=== PATIENT | male | born 1950 | race African-American/Black ===

== ENCOUNTER 2023-05-01 01:59 | Emergency (ER) | payer OTHER ==
[2023-05-01 02:10] VITALS: BMI 15.3
[2023-05-01 02:54] LABS: BASO % 0.1 % (0-2.0); EOS % 1.9 % (0-4.5); HEMOGLOBIN 11.9 GM/dL (11.7-16.9); LYMPH % 15.6 % (8-40); MCH 28.6 pg (25.7-33.7); MCHC 33.2 g/dl (32.0-35.9); MEAN CELL VOLUME 86.1 fl (80-96); MEAN PLT VOLUME 9.2 fl (7.5-11.1); MONO % 10.2 % (3.8-10.2); NEUT % 72.2 % (42.8-82.8); PLATELET COUNT 195 10^3/uL (134-434); RBC 4.17 M/mm3 (4.00-5.60); RDW 14.5 % (11.9-15.9)
[2023-05-01 03:13] LABS: POTASSIUM 3.8 mmol/L (3.5-5.1)
[2023-05-01 03:15] LABS: ALBUMIN 2.8 g/dl (3.4-5.0); CALCIUM 8.4 mg/dL (8.5-10.1)
[2023-05-01 03:16] LABS: BLOOD UREA NITROGEN 13.7 mg/dL (7-18)
[2023-05-01 03:18] LABS: CREATININE 0.8 mg/dL (0.55-1.3)
[2023-05-01 03:20] LABS: BILIRUBIN,TOTAL 0.6 mg/dL (0.2-1); TOT PROT 6.3 g/dl (6.4-8.2)
[2023-05-01] MEDS ORDERED: SODIUM CHLORIDE 0.9% 500 ML INFUS.BAG IV ONE (03:38)
[2023-05-01 04:50] LABS: EPI CELLS 6 /uL (0-25.1); HYALINE CASTS 0 /uL (0-3.1); URINE APPEARANCE CLOUDY; URINE BACTERIA 105 /uL (0-1359); URINE BILIRUBIN NEGATIVE (NEGATIVE); URINE COLOR YELLOW; URINE GLUCOSE (UA) NEGATIVE (NEGATIVE); URINE KETONE TRACE (NEGATIVE); URINE LEUK ESTERASE 3+ (NEGATIVE); URINE NITRITE NEGATIVE (NEGATIVE); URINE PROTEIN 2+ (NEGATIVE); URINE RBC 268 /uL (0-23.9); URINE WBC 3178 /uL (0-25.8)
[2023-05-01] MEDS ORDERED: CEFTRIAXONE 1,000 MG in DEXTROSE 5%-WATER - 50 ML IVPB ONE (04:56)
[2023-05-01] MEDS ORDERED: CEFTRIAXONE 1 GM/50 ML BAG ONE (05:01)
[2023-05-01] MEDS ORDERED: amLODIPine BESYLATE 5 MG TABLET (FP) PO ONE (06:28)
[2023-05-01] MEDS ORDERED: amLODIPine BESYLATE 5 MG TABLET (FP) ONE (06:32)
[2023-05-01 10:38] VITALS: BP 155/83; PULSE 61; RESP 20; TEMP 97.6
== END 2023-05-01 10:51 ==
LOC: JER 01:59
DX: N39.0 Urinary tract infection, site not specified (principal); Z20.822 Contact with and (suspected) exposure to COVID-19
CPT/HCPCS: 0241U-QW; 36415; 71045-TC-FY; 80053; 81003; 83735; 84484; 85025; 87086; 93005; 93010; 99285-25

== ENCOUNTER 2023-06-06 11:45 | Inpatient (IN) | payer OTHER ==
[2023-06-06] MEDS ORDERED: ONDANSETRON 4 MG/2 ML VIAL IVPUSH ONE (14:01)
[2023-06-06] MEDS ORDERED: ONDANSETRON 4 MG/2 ML VIAL ONE (14:04)
[2023-06-06 14:21] LABS: HEMATOCRIT 42.1 % (35.4-49); HEMOGLOBIN 13.9 GM/dL (11.7-16.9); MCH 28.4 pg (25.7-33.7); MEAN PLT VOLUME 10.6 fl (7.5-11.1); PLATELET COUNT 216 10^3/uL (134-434); RDW 14.9 % (11.9-15.9); WHITE BLOOD COUNT 18.5 K/mm3 (4.0-10.0)
[2023-06-06 14:37] LABS: EPI CELLS 10 /uL (0-25.1); HYALINE CASTS 9 /uL (0-3.1); URINE APPEARANCE CLOUDY; URINE BACTERIA 193 /uL (0-1359); URINE BILIRUBIN 1+ (NEGATIVE); URINE COLOR DK YELLOW; URINE GLUCOSE (UA) NEGATIVE (NEGATIVE); URINE KETONE TRACE (NEGATIVE); URINE LEUK ESTERASE 1+ (NEGATIVE); URINE NITRITE NEGATIVE (NEGATIVE); URINE PROTEIN 2+ (NEGATIVE); URINE RBC 75 /uL (0-23.9); URINE WBC 547 /uL (0-25.8)
[2023-06-06 14:51] LABS: POTASSIUM 5.3 mmol/L (3.5-5.1)
[2023-06-06 14:53] LABS: BLOOD UREA NITROGEN 42.9 mg/dL (7-18); CALCIUM 9.4 mg/dL (8.5-10.1)
[2023-06-06] MEDS ORDERED: PIPERACILLIN/TAZOB 3.375 GM 3.375 GM in DEXTROSE 5%-WATER - 50 ML IVPB ONE (14:53)
[2023-06-06] MEDS ORDERED: VANCOMYCIN 1 GM PREMIX - 1 GM/200 ML BAG IVPB ONE (14:54)
[2023-06-06] MEDS ORDERED: PANTOPRAZOLE SODIUM 40 MG VIAL IVPUSH ONE (14:54)
[2023-06-06 14:56] LABS: CREATININE 1.3 mg/dL (0.55-1.3)
[2023-06-06 14:58] LABS: TOT PROT 8.1 g/dl (6.4-8.2)
[2023-06-06] MEDS ORDERED: PANTOPRAZOLE SODIUM 40 MG VIAL ONE (14:58)
[2023-06-06] MEDS ORDERED: VANCOMYCIN 1 GRAM (PRE-DOCKED) 1,000 MG/250 ML BAG IVPB ONE (14:58)
[2023-06-06] MEDS ORDERED: PIPERACILLIN/TAZOB 3.375 GM 3.375 GM/50 ML BAG IVPB ONE ×2 (14:59→21:33)
[2023-06-06 15:02] LABS: ANISOCYTOSIS 0; MACROCYTOSIS 0
[2023-06-06 15:03] LABS: LACTIC ACID 3.5 mmol/L (0.4-2.0)
[2023-06-06 15:52] LABS: YEAST NONE SEEN (NEGATIVE)
[2023-06-06 15:53] LABS: ACTIVATED PTT 28.7 SECONDS (25.2-36.5); INR 1.11 (0.83-1.09); PROTHROMBIN TIME (PATIENT) 12.9 SEC (9.7-13.0)
[2023-06-06] MEDS ORDERED: LACTATED RINGERS SOLUTION 1000 ML INFUS.BAG IV ONE (16:30)
[2023-06-06] MEDS ORDERED: LIDOCAINE HCL 2% JELLY 11 ML TP ONE (18:23)
[2023-06-06] MEDS ORDERED: DEXTROSE 5%-0.45% SALINE 1,000 ML IV SCH (21:15)
[2023-06-06] MEDS ORDERED: ACETAMINOPHEN 1000 MG/100 ML BAG IVPB PRN (21:23)
[2023-06-06] MEDS ORDERED: PIPERACILLIN/TAZOB 3.375 GM 3.375 GM in DEXTROSE 5%-WATER - 50 ML IVPB SCH (21:30)
[2023-06-06] MEDS: PIPERACILLIN/TAZOB 3.375 GM 3.375 GM in DEXTROSE 5%-WATER - 50 ML IVPB SCH (21:56)
[2023-06-07 00:02] LABS: POTASSIUM 4.2 mmol/L (3.5-5.1)
[2023-06-07 00:04] LABS: BLOOD UREA NITROGEN 33.5 mg/dL (7-18); CALCIUM 8.8 mg/dL (8.5-10.1); MAGNESIUM 2.9 mg/dL (1.8-2.4)
[2023-06-07 00:08] LABS: CREATININE 1.2 mg/dL (0.55-1.3)
[2023-06-07] MEDS ORDERED: VANCOMYCIN 1,000 MG in DEXTROSE 5%-WATER - 250 ML IVPB SCH (04:00)
[2023-06-07] MEDS: PIPERACILLIN/TAZOB 3.375 GM 3.375 GM in DEXTROSE 5%-WATER - 50 ML IVPB SCH ×3 (04:09→14:07)
[2023-06-07] MEDS: VANCOMYCIN/WATER FOR INJ (PEG) 1,000 MG/200 ML BAG IVPB SCH ×2 (04:20→16:55)
[2023-06-07] MEDS: PANTOPRAZOLE SODIUM 40 MG VIAL IVPUSH SCH (09:56)
[2023-06-07 10:36] LABS: HEMATOCRIT 38.7 % (35.4-49); HEMOGLOBIN 12.6 GM/dL (11.7-16.9); MCH 28.2 pg (25.7-33.7); MCHC 32.5 g/dl (32.0-35.9); MEAN CELL VOLUME 86.7 fl (80-96); MEAN PLT VOLUME 10.8 fl (7.5-11.1); PLATELET COUNT 192 10^3/uL (134-434); RBC 4.47 M/mm3 (4.00-5.60); RDW 15.1 % (11.9-15.9); WHITE BLOOD COUNT 14.4 K/mm3 (4.0-10.0)
[2023-06-07 10:54] LABS: POTASSIUM 3.9 mmol/L (3.5-5.1)
[2023-06-07 10:57] LABS: CALCIUM 8.9 mg/dL (8.5-10.1)
[2023-06-07 10:58] LABS: ALBUMIN 2.6 g/dl (3.4-5.0); BLOOD UREA NITROGEN 26.4 mg/dL (7-18)
[2023-06-07 11:01] LABS: CREATININE 1.2 mg/dL (0.55-1.3)
[2023-06-07 11:02] LABS: BILIRUBIN,TOTAL 0.8 mg/dL (0.2-1); TOT PROT 6.6 g/dl (6.4-8.2)
[2023-06-07] MEDS: SILVER SULFADIAZINE 1% TOP CREAM 50 GM JAR TP SCH (11:06)
[2023-06-07 11:08] LABS: ANISOCYTOSIS 0; HELMET CELLS 0; HOWELL-JOLLY BODIES 0; MACROCYTOSIS 0; OVALOCYTE 0; ROULEAU 0; SICKELED CELLS 0; TARGET CELLS 0; TEAR DROP CELLS 0; TOXIC GRANULATION 0
[2023-06-07] MEDS: SODIUM CHLORIDE 1,000 ML IV SCH (14:07)
[2023-06-08] MEDS: ZINC SULFATE 220 MG CAPSULE (FP) PO SCH (09:19)
[2023-06-08] MEDS: ASCORBIC ACID 500 MG TABLET (FP) PO SCH ×2 (09:20→22:01)
[2023-06-08] MEDS: MULTIVITAMINS (DAILY MVI) TABLET (FP) PO SCH (09:20)
[2023-06-08] MEDS: PANTOPRAZOLE SODIUM 40 MG VIAL IVPUSH SCH (10:06)
[2023-06-08] MEDS: SILVER SULFADIAZINE 1% TOP CREAM 50 GM JAR TP SCH (10:45)
[2023-06-08] MEDS ORDERED: METOCLOPRAMIDE HCL INJECTION 10 MG/2 ML VIAL IVPUSH PRN (10:53)
[2023-06-08] MEDS: SODIUM CHLORIDE 1,000 ML IV SCH ×2 (17:03→22:09)
[2023-06-08] MEDS: PIPERACILLIN/TAZOB 3.375 GM 3.375 GM in DEXTROSE 5%-WATER - 50 ML IVPB SCH ×2 (17:07→22:02)
[2023-06-09] MEDS: PIPERACILLIN/TAZOB 3.375 GM 3.375 GM in DEXTROSE 5%-WATER - 50 ML IVPB SCH ×4 (02:01→21:53)
[2023-06-09] MEDS: PANTOPRAZOLE SODIUM 40 MG VIAL IVPUSH SCH (09:58)
[2023-06-09] MEDS: SILVER SULFADIAZINE 1% TOP CREAM 50 GM JAR TP SCH (10:00)
[2023-06-09] MEDS: MULTIVITAMINS (DAILY MVI) TABLET (FP) PO SCH (10:05)
[2023-06-09] MEDS: ASCORBIC ACID 500 MG TABLET (FP) PO SCH ×2 (10:05→21:53)
[2023-06-09] MEDS: ZINC SULFATE 220 MG CAPSULE (FP) PO SCH (10:05)
[2023-06-09] MEDS: SODIUM CHLORIDE 1,000 ML IV SCH (12:29)
[2023-06-10] MEDS: PIPERACILLIN/TAZOB 3.375 GM 3.375 GM in DEXTROSE 5%-WATER - 50 ML IVPB SCH ×4 (03:49→21:52)
[2023-06-10 07:07] LABS: BASO % 0.2 % (0-2.0); EOS % 1.2 % (0-4.5); HEMATOCRIT 33.5 % (35.4-49); HEMOGLOBIN 10.8 GM/dL (11.7-16.9); LYMPH % 13.1 % (8-40); MCH 28.1 pg (25.7-33.7); MCHC 32.4 g/dl (32.0-35.9); MEAN CELL VOLUME 86.7 fl (80-96); MEAN PLT VOLUME 9.3 fl (7.5-11.1); MONO % 15.6 % (3.8-10.2); NEUT % 69.9 % (42.8-82.8); PLATELET COUNT 199 10^3/uL (134-434); RBC 3.86 M/mm3 (4.00-5.60); RDW 14.7 % (11.9-15.9); WHITE BLOOD COUNT 7.6 K/mm3 (4.0-10.0)
[2023-06-10 07:35] LABS: BLOOD UREA NITROGEN 17.3 mg/dL (7-18); CALCIUM 8.4 mg/dL (8.5-10.1)
[2023-06-10 07:36] LABS: ALBUMIN 2.2 g/dl (3.4-5.0)
[2023-06-10 07:39] LABS: BILIRUBIN,TOTAL 1.1 mg/dL (0.2-1); CREATININE 0.7 mg/dL (0.55-1.3); TOT PROT 5.9 g/dl (6.4-8.2)
[2023-06-10] MEDS ORDERED: SODIUM CHLORIDE 0.45%/POT 20 MEQ/1,000 ML INFUS.BAG IV SCH (09:15)
[2023-06-10] MEDS: PANTOPRAZOLE SODIUM 40 MG VIAL IVPUSH SCH (10:31)
[2023-06-10] MEDS: MULTIVITAMINS (DAILY MVI) TABLET (FP) PO SCH (11:34)
[2023-06-10] MEDS: SILVER SULFADIAZINE 1% TOP CREAM 50 GM JAR TP SCH (11:34)
[2023-06-10] MEDS: ZINC SULFATE 220 MG CAPSULE (FP) PO SCH (11:34)
[2023-06-10] MEDS: ASCORBIC ACID 500 MG TABLET (FP) PO SCH ×2 (11:35→21:49)
[2023-06-10 11:54] LABS: BILIRUBIN,DIRECT 0.2 mg/dL (0.0-0.2)
[2023-06-10] MEDS: KCL 10 MEQ IVPB 10 MEQ/100 ML INFUS.BAG IVPB SCH ×3 (15:18→18:47)
[2023-06-10 16:11] VITALS: BMI 14.2
[2023-06-10] MEDS: SODIUM CHLORIDE 0.45%/POT 20 MEQ/1,000 ML INFUS.BAG IV SCH (17:09)
[2023-06-11] MEDS: PIPERACILLIN/TAZOB 3.375 GM 3.375 GM in DEXTROSE 5%-WATER - 50 ML IVPB SCH ×4 (03:00→21:13)
[2023-06-11] MEDS: SODIUM CHLORIDE 0.45%/POT 20 MEQ/1,000 ML INFUS.BAG IV SCH ×2 (04:47→18:00)
[2023-06-11 08:17] LABS: BASO % 0.2 % (0-2.0); EOS % 1.9 % (0-4.5); HEMOGLOBIN 11.1 GM/dL (11.7-16.9); LYMPH % 7.9 % (8-40); MCHC 32.6 g/dl (32.0-35.9); MONO % 12.3 % (3.8-10.2); NEUT % 77.7 % (42.8-82.8); PLATELET COUNT 198 10^3/uL (134-434); RBC 3.96 M/mm3 (4.00-5.60); RDW 14.6 % (11.9-15.9); WHITE BLOOD COUNT 9.3 K/mm3 (4.0-10.0)
[2023-06-11 08:45] LABS: POTASSIUM 3.4 mmol/L (3.5-5.1)
[2023-06-11 08:57] LABS: ALBUMIN 2.1 g/dl (3.4-5.0); BLOOD UREA NITROGEN 16.2 mg/dL (7-18)
[2023-06-11 09:01] LABS: CREATININE 0.6 mg/dL (0.55-1.3); TOT PROT 5.8 g/dl (6.4-8.2)
[2023-06-11] MEDS: MULTIVITAMINS (DAILY MVI) TABLET (FP) PO SCH ×2 (09:21→09:24)
[2023-06-11] MEDS: ZINC SULFATE 220 MG CAPSULE (FP) PO SCH ×2 (09:21→09:24)
[2023-06-11] MEDS: PANTOPRAZOLE SODIUM 40 MG VIAL IVPUSH SCH (09:21)
[2023-06-11] MEDS: ASCORBIC ACID 500 MG TABLET (FP) PO SCH ×3 (09:21→21:02)
[2023-06-11] MEDS: SILVER SULFADIAZINE 1% TOP CREAM 50 GM JAR TP SCH (09:22)
[2023-06-11] MEDS: KCL 10 MEQ IVPB 10 MEQ/100 ML INFUS.BAG IVPB SCH ×3 (11:45→14:48)
[2023-06-12] MEDS: PIPERACILLIN/TAZOB 3.375 GM 3.375 GM in DEXTROSE 5%-WATER - 50 ML IVPB SCH ×4 (03:39→22:00)
[2023-06-12] MEDS: ZINC SULFATE 220 MG CAPSULE (FP) PO SCH (10:21)
[2023-06-12] MEDS: ASCORBIC ACID 500 MG TABLET (FP) PO SCH ×2 (10:21→22:01)
[2023-06-12] MEDS: MULTIVITAMINS (DAILY MVI) TABLET (FP) PO SCH (10:21)
[2023-06-12] MEDS: PANTOPRAZOLE SODIUM 40 MG VIAL IVPUSH SCH (10:22)
[2023-06-12] MEDS: AMINO ACIDS 4.25%/D5W 1,000 ML IV SCH (10:22)
[2023-06-12] MEDS: SILVER SULFADIAZINE 1% TOP CREAM 50 GM JAR TP SCH (10:34)
[2023-06-12] MEDS: SODIUM CHLORIDE 0.45%/POT 20 MEQ/1,000 ML INFUS.BAG IV SCH (11:44)
[2023-06-13] MEDS: PIPERACILLIN/TAZOB 3.375 GM 3.375 GM in DEXTROSE 5%-WATER - 50 ML IVPB SCH ×4 (03:29→21:55)
[2023-06-13] MEDS: ZINC SULFATE 220 MG CAPSULE (FP) PO SCH (09:50)
[2023-06-13] MEDS: ASCORBIC ACID 500 MG TABLET (FP) PO SCH ×2 (09:51→22:38)
[2023-06-13] MEDS: MULTIVITAMINS (DAILY MVI) TABLET (FP) PO SCH (09:51)
[2023-06-13] MEDS: PANTOPRAZOLE SODIUM 40 MG VIAL IVPUSH SCH (10:02)
[2023-06-13] MEDS: SILVER SULFADIAZINE 1% TOP CREAM 50 GM JAR TP SCH (10:03)
[2023-06-13] MEDS: AMINO ACIDS 4.25%/D5W 1,000 ML IV SCH (10:03)
[2023-06-13] MEDS ORDERED: GLUCAGON 1 MG KIT ONE (13:02)
[2023-06-13] MEDS ORDERED: GLUCAGON 1 MG KIT IVPUSH ONE (13:10)
[2023-06-13 16:07] LABS: POTASSIUM 3.3 mmol/L (3.5-5.1)
[2023-06-13 16:08] LABS: CALCIUM 8.3 mg/dL (8.5-10.1)
[2023-06-13 16:09] LABS: ALBUMIN 2.2 g/dl (3.4-5.0); BLOOD UREA NITROGEN 19.5 mg/dL (7-18)
[2023-06-13 16:12] LABS: CREATININE 0.7 mg/dL (0.55-1.3)
[2023-06-13 16:13] LABS: BILIRUBIN,TOTAL 0.6 mg/dL (0.2-1)
[2023-06-13 16:14] LABS: TOT PROT 6.2 g/dl (6.4-8.2)
[2023-06-13] MEDS: KCL 10 MEQ IVPB 10 MEQ/100 ML INFUS.BAG IVPB SCH ×3 (19:37→22:26)
[2023-06-13] MEDS ORDERED: KCL 10 MEQ IVPB 10 MEQ/100 ML INFUS.BAG IVPB SCH (22:15)
[2023-06-14] MEDS: POTASSIUM CHLORIDE 10 MEQ in AMINO ACIDS 4.25%/D5W 1,000 ML IV SCH ×2 (01:30→19:05)
[2023-06-14] MEDS: PIPERACILLIN/TAZOB 3.375 GM 3.375 GM in DEXTROSE 5%-WATER - 50 ML IVPB SCH ×4 (03:22→21:11)
[2023-06-14 08:42] LABS: POTASSIUM 4.2 mmol/L (3.5-5.1)
[2023-06-14 08:46] LABS: BLOOD UREA NITROGEN 21.4 mg/dL (7-18); CALCIUM 8.5 mg/dL (8.5-10.1); MAGNESIUM 1.7 mg/dL (1.8-2.4)
[2023-06-14 08:47] LABS: HEMATOCRIT 33.6 % (35.4-49); HEMOGLOBIN 11.2 GM/dL (11.7-16.9); MCH 28.5 pg (25.7-33.7); MCHC 33.2 g/dl (32.0-35.9); MEAN PLT VOLUME 8.6 fl (7.5-11.1); PLATELET COUNT 205 10^3/uL (134-434); RBC 3.91 M/mm3 (4.00-5.60); RDW 14.5 % (11.9-15.9); WHITE BLOOD COUNT 6.1 K/mm3 (4.0-10.0)
[2023-06-14 08:48] LABS: ALBUMIN 2.2 g/dl (3.4-5.0)
[2023-06-14 08:49] LABS: CREATININE 0.7 mg/dL (0.55-1.3)
[2023-06-14 08:51] LABS: BILIRUBIN,TOTAL 0.8 mg/dL (0.2-1); TOT PROT 6.2 g/dl (6.4-8.2)
[2023-06-14] MEDS: PANTOPRAZOLE SODIUM 40 MG VIAL IVPUSH SCH (09:30)
[2023-06-14] MEDS: MULTIVITAMINS (DAILY MVI) TABLET (FP) PO SCH (12:13)
[2023-06-14] MEDS: SILVER SULFADIAZINE 1% TOP CREAM 50 GM JAR TP SCH (12:13)
[2023-06-14] MEDS: ZINC SULFATE 220 MG CAPSULE (FP) PO SCH (12:13)
[2023-06-14] MEDS: ASCORBIC ACID 500 MG TABLET (FP) PO SCH ×2 (12:14→21:11)
[2023-06-14 22:21] VITALS: RESP 18
[2023-06-15] MEDS: PIPERACILLIN/TAZOB 3.375 GM 3.375 GM in DEXTROSE 5%-WATER - 50 ML IVPB SCH ×2 (02:46→08:17)
[2023-06-15 09:45] VITALS: BP 110/78; PULSE 80; TEMP 97.8
[2023-06-15] MEDS: ASCORBIC ACID 500 MG TABLET (FP) PO SCH (10:06)
[2023-06-15] MEDS: MULTIVITAMINS (DAILY MVI) TABLET (FP) PO SCH (10:06)
[2023-06-15] MEDS: ZINC SULFATE 220 MG CAPSULE (FP) PO SCH (10:06)
[2023-06-15] MEDS ORDERED: MULTIVIT-MINERALS ORAL LIQUID PO SCH ×2 (10:08→10:47)
[2023-06-15] MEDS ORDERED: ZINC SULFATE 220 MG CAPSULE (FP) GT SCH (11:21)
[2023-06-15] MEDS ORDERED: ASCORBIC ACID 500 MG/5 ML UNIT DOSE CUP GT SCH (11:21)
[2023-06-15] MEDS: SILVER SULFADIAZINE 1% TOP CREAM 50 GM JAR TP SCH (11:43)
[2023-06-15] MEDS ORDERED: MULTIVIT-MINERALS ORAL LIQUID GT SCH (12:00)
[2023-06-15] MEDS ORDERED: FAMOTIDINE 20 MG/2.5 ML ORAL LIQUID PEG SCH (12:15)
[2023-06-15] MEDS: POTASSIUM CHLORIDE 10 MEQ in AMINO ACIDS 4.25%/D5W 1,000 ML IV SCH (12:41)
[2023-06-15] MEDS: PANTOPRAZOLE SODIUM 40 MG VIAL IVPUSH SCH (12:43)
== END 2023-06-15 15:05 | DRG 388 ==
LOC: JER 11:45 → JERBED 18:50 → J4W 06-07 00:15
PROVIDERS: ADMIT Internal Medicine; ATTEND Internal Medicine
PROC: 0D9670Z Drainage of Stomach with Drainage Device, Via Natural or Artificial Opening (ICD-10-PCS; principal; 2023-06-07)
PROC: 0DH63UZ Insertion of Feeding Device into Stomach, Percutaneous Approach (ICD-10-PCS; 2023-06-13)
PROC: BD12YZZ Fluoroscopy of Stomach using Other Contrast (ICD-10-PCS; 2023-06-13)
DX: K56.609 Unspecified intestinal obstruction, unspecified as to partial versus complete obstruction (principal); J69.0 Pneumonitis due to inhalation of food and vomit; L89.153 Pressure ulcer of sacral region, stage 3; I48.92 Unspecified atrial flutter; K92.0 Hematemesis; E46 Unspecified protein-calorie malnutrition; Z68.1 Body mass index [BMI] 19.9 or less, adult; E87.0 Hyperosmolality and hypernatremia; R64 Cachexia; I10 Essential (primary) hypertension; G20.A1 Parkinson's disease without dyskinesia, without mention of fluctuations; E78.5 Hyperlipidemia, unspecified; N40.0 Benign prostatic hyperplasia without lower urinary tract symptoms; D72.829 Elevated white blood cell count, unspecified; K52.9 Noninfective gastroenteritis and colitis, unspecified; R62.7 Adult failure to thrive; E87.6 Hypokalemia
CPT/HCPCS: 0241U-QW; 36415; 43752; 49440; 71045-TC-FY; 71250-TC; 74018-TC-FY; 74019-TC-FY; 74174-TC; 74251-TC-FY; 80048; 80053; 81003; 82248; 82272; 82728; 82962; 83540; 83550; 83605; 83735; 84100; 84439; 84443; 84484; 85025; 85027; 85610; 85730; 86850; 86900; 86901; 87040; 87086; 87324; 87449; 93005; 93010; 93971; 99285-25; J3480

== ENCOUNTER 2023-09-09 02:26 | Emergency (ER) | payer OTHER ==
[2023-09-09 02:37] VITALS: BMI 18.6
[2023-09-09 03:32] LABS: BASO % 0.5 % (0-2.0); EOS % 0.2 % (0-4.5); HEMATOCRIT 34.8 % (35.4-49); HEMOGLOBIN 11.6 GM/dL (11.7-16.9); LYMPH % 17.5 % (8-40); MCHC 33.2 g/dl (32.0-35.9); MEAN CELL VOLUME 87.4 fl (80-96); MEAN PLT VOLUME 8.4 fl (7.5-11.1); NEUT % 74.8 % (42.8-82.8); PLATELET COUNT 251 10^3/uL (134-434); RBC 3.98 M/mm3 (4.00-5.60); RDW 16.6 % (11.9-15.9); WHITE BLOOD COUNT 6.7 K/mm3 (4.0-10.0)
[2023-09-09 03:42] LABS: INR 1.07 (0.83-1.09); PROTHROMBIN TIME (PATIENT) 12.4 SEC (9.7-13.0)
[2023-09-09 03:45] LABS: ACTIVATED PTT 27.6 SECONDS (25.2-36.5)
[2023-09-09 04:25] LABS: POTASSIUM 4.5 mmol/L (3.5-5.1)
[2023-09-09 04:27] LABS: CALCIUM 8.4 mg/dL (8.5-10.1)
[2023-09-09 04:28] LABS: BLOOD UREA NITROGEN 34.1 mg/dL (7-18)
[2023-09-09 04:31] LABS: CREATININE 1.2 mg/dL (0.55-1.3)
[2023-09-09 04:33] LABS: BILIRUBIN,TOTAL 0.4 mg/dL (0.2-1)
[2023-09-09] MEDS: SODIUM CHLORIDE 0.9% 500 ML INFUS.BAG IV ONE (04:45)
[2023-09-09 06:37] LABS: EPI CELLS 1 /uL (0-25.1); HYALINE CASTS 1 /uL (0-3.1); PH,URINE 6.5 (5.0-8.0); URINE APPEARANCE CLEAR; URINE BACTERIA >9,000 /uL (0-1359); URINE BILIRUBIN 1+ (NEGATIVE); URINE COLOR DK YELLOW; URINE GLUCOSE (UA) NEGATIVE (NEGATIVE); URINE KETONE TRACE (NEGATIVE); URINE LEUK ESTERASE TRACE (NEGATIVE); URINE NITRITE POSITIVE (NEGATIVE); URINE PROTEIN 1+ (NEGATIVE); URINE RBC 6 /uL (0-23.9); URINE UROBILINOGEN 0.2 mg/dL (0.2-1.0); URINE WBC 119 /uL (0-25.8)
[2023-09-09] MEDS ORDERED: CEFTRIAXONE 1 GM/50 ML BAG ONE (08:44)
[2023-09-09] MEDS: CEFTRIAXONE 1 GM in DEXTROSE 5%-WATER - 100 ML IVPB ONE (08:44)
[2023-09-09 11:49] VITALS: TEMP 97.8
[2023-09-09 14:03] VITALS: BP 158/63; PULSE 71; RESP 20
== END 2023-09-09 14:03 | disposition admitted as inpatient to this hospital (09) ==
LOC: JER 02:26
PROC: 0HQ1XZZ Repair Face Skin, External Approach (ICD-10-PCS; principal; 2023-09-09)
PROC: 3E03329 Introduction of Other Anti-infective into Peripheral Vein, Percutaneous Approach (ICD-10-PCS; 2023-09-09)
DX: S01.112A Laceration without foreign body of left eyelid and periocular area, initial encounter (principal); N17.9 Acute kidney failure, unspecified; W01.198A Fall on same level from slipping, tripping and stumbling with subsequent striking against other object, initial encounter; Z20.822 Contact with and (suspected) exposure to COVID-19
CPT/HCPCS: 0241U-QW; 12011-25; 36415; 70450-TC; 71045-TC-FY; 72125-TC; 72170-TC-FY; 80053; 81003; 83735; 84484; 85025; 85610; 85730; 86850; 86900; 86901; 87086; 87186; 93005; 93010; 96365; 99285-25

== ENCOUNTER 2023-10-01 08:41 | Emergency (ER) | payer OTHER ==
[2023-10-01 09:10] VITALS: TEMP 98; BMI 16.0
[2023-10-01 10:51] LABS: BASO % 0.5 % (0-2.0); EOS % 0.8 % (0-4.5); HEMATOCRIT 37.3 % (35.4-49); HEMOGLOBIN 12.4 GM/dL (11.7-16.9); MCHC 33.2 g/dl (32.0-35.9); MEAN CELL VOLUME 87.5 fl (80-96); MEAN PLT VOLUME 8.2 fl (7.5-11.1); MONO % 6.7 % (3.8-10.2); PLATELET COUNT 263 10^3/uL (134-434); RBC 4.27 M/mm3 (4.00-5.60); RDW 16.5 % (11.9-15.9); WHITE BLOOD COUNT 7.3 K/mm3 (4.0-10.0)
[2023-10-01 11:16] LABS: POTASSIUM 4.4 mmol/L (3.5-5.1)
[2023-10-01 11:18] LABS: CALCIUM 9.3 mg/dL (8.5-10.1)
[2023-10-01 11:19] LABS: ALBUMIN 3.2 g/dl (3.4-5.0); BLOOD UREA NITROGEN 23.9 mg/dL (7-18)
[2023-10-01 11:46] LABS: BILIRUBIN,TOTAL 0.5 mg/dL (0.2-1); CREATININE 0.9 mg/dL (0.55-1.3)
[2023-10-01] MEDS: LACTATED RINGERS SOLUTION 1,000 ML/1,000 ML INFUS.BAG IV SCH (11:53)
[2023-10-01 13:24] LABS: EPI CELLS 4 /uL (0-25.1); HYALINE CASTS 3 /uL (0-3.1); PH,URINE 6.5 (5.0-8.0); URINE APPEARANCE CLOUDY; URINE BACTERIA >9,000 /uL (0-1359); URINE BILIRUBIN NEGATIVE (NEGATIVE); URINE COLOR DK YELLOW; URINE GLUCOSE (UA) NEGATIVE (NEGATIVE); URINE KETONE NEGATIVE (NEGATIVE); URINE LEUK ESTERASE 2+ (NEGATIVE); URINE NITRITE POSITIVE (NEGATIVE); URINE PROTEIN 1+ (NEGATIVE); URINE RBC 5386 /uL (0-23.9); URINE UROBILINOGEN 0.2 mg/dL (0.2-1.0); URINE WBC 806 /uL (0-25.8)
[2023-10-01] MEDS ORDERED: CEFTRIAXONE 1 GM/50 ML BAG ONE (14:02)
[2023-10-01] MEDS: CEFTRIAXONE 1,000 MG in DEXTROSE 5%-WATER - 50 ML IVPB ONE (14:06)
[2023-10-01 14:15] VITALS: RESP 20
[2023-10-01 18:31] VITALS: BP 112/67; PULSE 94
== END 2023-10-01 18:31 | disposition home or self-care (01) ==
LOC: JER 08:41
PROC: 0HQ1XZZ Repair Face Skin, External Approach (ICD-10-PCS; principal; 2023-10-01)
PROC: 3E03329 Introduction of Other Anti-infective into Peripheral Vein, Percutaneous Approach (ICD-10-PCS; 2023-10-01)
DX: S01.112A Laceration without foreign body of left eyelid and periocular area, initial encounter (principal); S00.81XA Abrasion of other part of head, initial encounter; R41.0 Disorientation, unspecified; W01.198A Fall on same level from slipping, tripping and stumbling with subsequent striking against other object, initial encounter; Y93.01 Activity, walking, marching and hiking
CPT/HCPCS: 36415; 70450-TC; 71045-TC-FY; 72125-TC; 72170-TC-FY; 80053; 81003; 85025; 87086; 87186; 99285-25

== ENCOUNTER 2023-10-16 20:36 | Emergency (ER) | payer OTHER ==
[2023-10-16 20:53] VITALS: RESP 12; BMI 17.2
[2023-10-16 22:40] LABS: BASO % 0.4 % (0-2.0); EOS % 1.2 % (0-4.5); HEMATOCRIT 35.5 % (35.4-49); HEMOGLOBIN 11.8 GM/dL (11.7-16.9); LYMPH % 19.2 % (8-40); MCH 29.3 pg (25.7-33.7); MCHC 33.3 g/dl (32.0-35.9); MEAN CELL VOLUME 87.9 fl (80-96); MEAN PLT VOLUME 8.2 fl (7.5-11.1); MONO % 7.4 % (3.8-10.2); NEUT % 71.8 % (42.8-82.8); PLATELET COUNT 264 10^3/uL (134-434); RBC 4.04 M/mm3 (4.00-5.60); RDW 16.1 % (11.9-15.9); WHITE BLOOD COUNT 6.1 K/mm3 (4.0-10.0)
[2023-10-16 22:46] LABS: INR 1.04 (0.83-1.09); PROTHROMBIN TIME (PATIENT) 11.7 SEC (9.7-13.0)
[2023-10-16 22:48] LABS: ACTIVATED PTT 29.1 SECONDS (25.2-36.5)
[2023-10-16 22:59] LABS: POTASSIUM 4.4 mmol/L (3.5-5.1)
[2023-10-16 23:01] LABS: EPI CELLS 3 /uL (0-25.1); HYALINE CASTS 0 /uL (0-3.1); PH,URINE 7.5 (5.0-8.0); URINE APPEARANCE CLEAR; URINE BACTERIA 13 /uL (0-1359); URINE BILIRUBIN NEGATIVE (NEGATIVE); URINE COLOR DK YELLOW; URINE GLUCOSE (UA) NEGATIVE (NEGATIVE); URINE KETONE NEGATIVE (NEGATIVE); URINE LEUK ESTERASE NEGATIVE (NEGATIVE); URINE NITRITE NEGATIVE (NEGATIVE); URINE PROTEIN 1+ (NEGATIVE); URINE RBC 18 /uL (0-23.9); URINE UROBILINOGEN 0.2 mg/dL (0.2-1.0); URINE WBC 12 /uL (0-25.8)
[2023-10-16 23:01] LABS: ALBUMIN 3.2 g/dl (3.4-5.0); BLOOD UREA NITROGEN 27.4 mg/dL (7-18); CALCIUM 9.2 mg/dL (8.5-10.1)
[2023-10-16 23:06] LABS: BILIRUBIN,TOTAL 0.4 mg/dL (0.2-1); TOT PROT 7.9 g/dl (6.4-8.2)
[2023-10-16 23:55] VITALS: TEMP 97.8
[2023-10-17 01:49] VITALS: BP 158/86; PULSE 62
== END 2023-10-17 01:53 | disposition home or self-care (01) ==
LOC: JER 20:36
DX: M54.2 Cervicalgia (principal); R51.9 Headache, unspecified; W19.XXXA Unspecified fall, initial encounter
CPT/HCPCS: 36415; 70450-TC; 71046-TC-FY; 72125-TC; 72170-TC-FY; 80053; 81003; 84484; 85025; 85610; 85730; 86850; 86900; 86901; 87086; 93005; 93010; 99285-25

== ENCOUNTER 2024-01-23 16:32 | Inpatient (IN) | payer OTHER ==
[2024-01-23 17:56] LABS: BASO % 0.4 % (0-2.0); EOS % 0.5 % (0-4.5); HEMOGLOBIN 12.8 GM/dL (11.7-16.9); LYMPH % 27.8 % (8-40); MCH 30.3 pg (25.7-33.7); MCHC 33.6 g/dl (32.0-35.9); MONO % 8.3 % (3.8-10.2); PLATELET COUNT 221 10^3/uL (134-434); RBC 4.22 M/mm3 (4.00-5.60); WHITE BLOOD COUNT 5.8 K/mm3 (4.0-10.0)
[2024-01-23 17:56] LABS: VENOUS BASE EXCESS 2.7 mmol/L (-2-2); VENOUS O2 SATURATION 50.7 % (70-80); VENOUS PCO2 52.1 mmHg (38-52); VENOUS PH 7.365 (7.310-7.410)
[2024-01-23 18:20] LABS: ALBUMIN 3.6 g/dl (3.4-5.0); CALCIUM 9.7 mg/dL (8.5-10.1)
[2024-01-23 18:21] LABS: BLOOD UREA NITROGEN 28.1 mg/dL (7-18)
[2024-01-23 18:23] LABS: CREATININE 1.3 mg/dL (0.55-1.3)
[2024-01-23 18:25] LABS: BILIRUBIN,TOTAL 0.4 mg/dL (0.2-1); TOT PROT 7.9 g/dl (6.4-8.2)
[2024-01-23 19:26] LABS: EPI CELLS 6 /uL (0-25.1); HYALINE CASTS 1 /uL (0-3.1); URINE APPEARANCE TURBID; URINE BACTERIA >9,000 /uL (0-1359); URINE BILIRUBIN NEGATIVE (NEGATIVE); URINE COLOR YELLOW; URINE GLUCOSE (UA) NEGATIVE (NEGATIVE); URINE KETONE NEGATIVE (NEGATIVE); URINE LEUK ESTERASE 3+ (NEGATIVE); URINE NITRITE POSITIVE (NEGATIVE); URINE PROTEIN 1+ (NEGATIVE); URINE RBC 965 /uL (0-23.9); URINE UROBILINOGEN 0.2 mg/dL (0.2-1.0); URINE WBC 4785 /uL (0-25.8)
[2024-01-23] MEDS ORDERED: CEFEPIME 2 GM/100 ML BAG IVPB ONE (20:26)
[2024-01-23] MEDS ORDERED: CEFTRIAXONE 2 GM/100 ML BAG IVPB ONE (20:31)
[2024-01-23] MEDS: SODIUM CHLORIDE 500 ML IV STA (20:45)
[2024-01-23] MEDS: CEFTRIAXONE 2 GM-D5W BAG 2 GM/50 ML BAG IVPB ONE (20:45)
[2024-01-24] MEDS: LORazepam 0.5 MG TABLET PO SCH (01:27)
[2024-01-24] MEDS ORDERED: CARBIDOPA/LEVODOPA 25/100 TABLET (FP) ONE (01:29)
[2024-01-24] MEDS: CARBIDOPA/LEVODOPA 25/100 TABLET (FP) GT SCH (01:36)
[2024-01-24] MEDS: ENTACAPONE 200 MG TABLET PO SCH (02:20)
[2024-01-24 08:59] LABS: HEMATOCRIT 37.7 % (35.4-49); HEMOGLOBIN 12.5 GM/dL (11.7-16.9); MCH 30.2 pg (25.7-33.7); MEAN CELL VOLUME 91.5 fl (80-96); PLATELET COUNT 187 10^3/uL (134-434); RBC 4.13 M/mm3 (4.00-5.60); RDW 15.1 % (11.9-15.9)
[2024-01-24 09:20] LABS: POTASSIUM 4.6 mmol/L (3.5-5.1)
[2024-01-24 09:22] LABS: CALCIUM 9.3 mg/dL (8.5-10.1)
[2024-01-24 09:24] LABS: ALBUMIN 3.6 g/dl (3.4-5.0); BLOOD UREA NITROGEN 25.1 mg/dL (7-18); MAGNESIUM 2.2 mg/dL (1.8-2.4)
[2024-01-24 09:26] LABS: PHOSPHOROUS 2.7 mg/dL (2.5-4.9)
[2024-01-24 09:27] LABS: TOT PROT 7.8 g/dl (6.4-8.2)
[2024-01-24] MEDS ORDERED: PATIENT'S OWN MEDICATION (NON-FORMULARY) (Pimavanserin Tartrate [Nuplazid] 34 MG Capsule) PO SCH (10:00)
[2024-01-24] MEDS: CEFTRIAXONE 1 GM in DEXTROSE 5%-WATER - 50 ML IVPB SCH (10:52)
[2024-01-24] MEDS: busPIRone HCL 5 MG TABLET PO SCH (10:54)
[2024-01-24] MEDS: AMANTADINE HCL 100 MG TABLET PO SCH (10:55)
[2024-01-24] MEDS: ENOXAPARIN NA (PORCINE) 40 MG/0.4 ML DISP.SYRIN SQ SCH (11:03)
[2024-01-24 14:59] VITALS: BMI 15.5
[2024-01-25] MEDS: AMINO ACIDS/PROTEIN HYDROLYS 30 ML LIQUID.PKT PEG SCH (08:06)
[2024-01-25] MEDS: ASCORBIC ACID 250 MG TABLET (FP) PEG SCH (12:02)
[2024-01-26 10:29] LABS: BASO % 0.6 % (0-2.0); EOS % 1.2 % (0-4.5); HEMATOCRIT 35.2 % (35.4-49); HEMOGLOBIN 12.2 GM/dL (11.7-16.9); LYMPH % 41.3 % (8-40); MCHC 34.7 g/dl (32.0-35.9); MEAN CELL VOLUME 89.2 fl (80-96); NEUT % 47.9 % (42.8-82.8); PLATELET COUNT 208 10^3/uL (134-434); RBC 3.95 M/mm3 (4.00-5.60); WHITE BLOOD COUNT 4.2 K/mm3 (4.0-10.0)
[2024-01-26 10:42] LABS: POTASSIUM 3.8 mmol/L (3.5-5.1)
[2024-01-26 10:44] LABS: CALCIUM 9.7 mg/dL (8.5-10.1)
[2024-01-26 10:45] LABS: ALBUMIN 3.6 g/dl (3.4-5.0); BLOOD UREA NITROGEN 27.4 mg/dL (7-18)
[2024-01-26 10:48] LABS: CREATININE 1.1 mg/dL (0.55-1.3)
[2024-01-26 10:49] LABS: BILIRUBIN,TOTAL 0.6 mg/dL (0.2-1); TOT PROT 7.7 g/dl (6.4-8.2)
[2024-01-26 16:39] VITALS: BP 154/67; PULSE 73; RESP 20; TEMP 93.4
== END 2024-01-26 17:48 | DRG 689 ==
LOC: JER 16:32 → JERBED 22:32 → J5S 01-24 02:18
PROVIDERS: ADMIT Internal Medicine
DX: N39.0 Urinary tract infection, site not specified (principal); E43 Unspecified severe protein-calorie malnutrition; L89.154 Pressure ulcer of sacral region, stage 4; J98.11 Atelectasis; Z68.1 Body mass index [BMI] 19.9 or less, adult; G20.A1 Parkinson's disease without dyskinesia, without mention of fluctuations; F02.80 Dementia in other diseases classified elsewhere, unspecified severity, without behavioral disturbance, psychotic disturbance, mood disturbance, and anxiety; N40.0 Benign prostatic hyperplasia without lower urinary tract symptoms; Z93.1 Gastrostomy status; I10 Essential (primary) hypertension; B96.20 Unspecified Escherichia coli [E. coli] as the cause of diseases classified elsewhere
CPT/HCPCS: 0241U-QW; 36415; 70450-TC; 71046-TC-FY; 80053; 81003; 82550; 82553; 82803; 82962; 83605; 83690; 83735; 84100; 84153; 84484; 85025; 85027; 85730; 86850; 86900; 86901; 87040; 87086; 87186; 93005; 93010; 99285-25

== ENCOUNTER 2024-06-13 15:36 | Inpatient (IN) | payer OTHER ==
[2024-06-13 17:54] LABS: BASO % 0.7 % (0-2.0); EOS % 1.4 % (0-4.5); HEMATOCRIT 34.1 % (35.4-49); LYMPH % 25.8 % (8-40); MCH 28.2 pg (25.7-33.7); MCHC 32.4 g/dl (32.0-35.9); MEAN CELL VOLUME 87.1 fl (80-96); NEUT % 61.1 % (42.8-82.8); PLATELET COUNT 288 10^3/uL (134-434); RBC 3.91 M/mm3 (4.00-5.60); RDW 14.6 % (11.9-15.9); WHITE BLOOD COUNT 7.9 K/mm3 (4.0-10.0)
[2024-06-13 18:13] LABS: POTASSIUM 4.9 mmol/L (3.5-5.1)
[2024-06-13 18:15] LABS: CALCIUM 9.7 mg/dL (8.5-10.1)
[2024-06-13 18:16] LABS: ALBUMIN 2.7 g/dl (3.4-5.0); BLOOD UREA NITROGEN 27.6 mg/dL (7-18)
[2024-06-13 18:19] LABS: CREATININE 0.8 mg/dL (0.55-1.3)
[2024-06-13 18:21] LABS: BILIRUBIN,TOTAL 0.5 mg/dL (0.2-1); TOT PROT 7.6 g/dl (6.4-8.2)
[2024-06-13] MEDS: SODIUM CHLORIDE 0.9% 500 ML INFUS.BAG IV ONE (20:15)
[2024-06-14] MEDS ORDERED: ACETAMINOPHEN 1000 MG/100 ML BAG IVPB PRN (02:30)
[2024-06-14 03:05] VITALS: BMI 13.8
[2024-06-14] MEDS: ACETAMINOPHEN 1000 MG/100 ML BAG IVPB PRN (03:15)
[2024-06-14] MEDS: SODIUM CHLORIDE 500 ML IV STA ×2 (06:55→14:00)
[2024-06-14 09:11] LABS: HEMATOCRIT 30.5 % (35.4-49); HEMOGLOBIN 9.6 GM/dL (11.7-16.9); MCH 27.9 pg (25.7-33.7); MCHC 31.5 g/dl (32.0-35.9); MEAN CELL VOLUME 88.5 fl (80-96); MEAN PLT VOLUME 8.6 fl (7.5-11.1); PLATELET COUNT 231 10^3/uL (134-434); RBC 3.45 M/mm3 (4.00-5.60); RDW 14.4 % (11.9-15.9); WHITE BLOOD COUNT 22.1 K/mm3 (4.0-10.0)
[2024-06-14 09:32] LABS: POTASSIUM 3.4 mmol/L (3.5-5.1)
[2024-06-14 09:50] LABS: ALBUMIN 2.4 g/dl (3.4-5.0); BLOOD UREA NITROGEN 36.8 mg/dL (7-18); CALCIUM 8.9 mg/dL (8.5-10.1); MAGNESIUM 1.7 mg/dL (1.8-2.4)
[2024-06-14 09:53] LABS: PHOSPHOROUS 2.1 mg/dL (2.5-4.9)
[2024-06-14 09:55] LABS: BILIRUBIN,TOTAL 0.8 mg/dL (0.2-1); TOT PROT 6.4 g/dl (6.4-8.2)
[2024-06-14 09:58] LABS: ANISOCYTOSIS 1+; MACROCYTOSIS 1+
[2024-06-14] MEDS: ENOXAPARIN NA (PORCINE) 40 MG/0.4 ML DISP.SYRIN SQ SCH (10:50)
[2024-06-14] MEDS: MAGNESIUM SULFATE IN WATER 2 GM/50 ML IVPB IVPB ONE (10:50)
[2024-06-14] MEDS: POTASSIUM CHLORIDE ORAL LIQUID 20 MEQ/15 ML GT SCH (10:51)
[2024-06-14] MEDS: ENTACAPONE 200 MG TABLET PO SCH ×2 (10:52→16:25)
[2024-06-14] MEDS: busPIRone HCL 5 MG TABLET PO SCH (10:52)
[2024-06-14] MEDS: SODIUM CHLORIDE 1,000 ML IV SCH ×2 (10:53→19:10)
[2024-06-14] MEDS: PIPERACILLIN/TAZOB 2.25 GM 2.25 GM/50 ML BAG IVPB SCH (12:35)
[2024-06-14] MEDS: levETIRAcetam 500 MG/5 ML ORAL SOLUTION (UNIT-DOSE CUPS) GT SCH (12:37)
[2024-06-14] MEDS: THIAMINE HCL 200 MG/2 ML VIAL IVPB SCH (16:26)
[2024-06-14] MEDS: SODIUM CHLORIDE 1,000 ML IV STA (17:18)
[2024-06-14 18:19] LABS: EPI CELLS 3 /uL (0-25.1); HYALINE CASTS 52 /uL (0-3.1); PH,URINE 5.5 (5.0-8.0); URINE APPEARANCE CLOUDY; URINE BACTERIA >9,000 /uL (0-1359); URINE BILIRUBIN 1+ (NEGATIVE); URINE COLOR DK YELLOW; URINE GLUCOSE (UA) NEGATIVE (NEGATIVE); URINE KETONE TRACE (NEGATIVE); URINE LEUK ESTERASE 2+ (NEGATIVE); URINE NITRITE POSITIVE (NEGATIVE); URINE PROTEIN 2+ (NEGATIVE); URINE UROBILINOGEN 0.2 mg/dL (0.2-1.0); URINE WBC 611 /uL (0-25.8)
[2024-06-14 19:04] LABS: YEAST NONE SEEN (NEGATIVE)
[2024-06-14] MEDS: AMINO ACIDS/PROTEIN HYDROLYS 30 ML LIQUID.PKT GT SCH (19:10)
[2024-06-14] MEDS: AMANTADINE HCL 100 MG TABLET PO SCH (20:07)
[2024-06-14] MEDS: levETIRAcetam XR 500 MG TAB PO SCH (20:07)
[2024-06-14] MEDS: busPIRone HCL 5 MG TABLET GT SCH (22:09)
[2024-06-14] MEDS: AMANTADINE HCL 100 MG TABLET NR SCH (23:00)
[2024-06-15 09:01] LABS: HEMATOCRIT 28.9 % (35.4-49); HEMOGLOBIN 9.3 GM/dL (11.7-16.9); MCH 28.5 pg (25.7-33.7); MCHC 32.4 g/dl (32.0-35.9); MEAN CELL VOLUME 87.9 fl (80-96); MEAN PLT VOLUME 8.9 fl (7.5-11.1); PLATELET COUNT 201 10^3/uL (134-434); RBC 3.28 M/mm3 (4.00-5.60); RDW 14.7 % (11.9-15.9)
[2024-06-15] MEDS: HEPARIN NA (PORCINE) 5,000 UNITS/ML 1ML VIAL SQ SCH (09:27)
[2024-06-15 09:29] LABS: POTASSIUM 4.1 mmol/L (3.5-5.1)
[2024-06-15 09:31] LABS: CALCIUM 7.8 mg/dL (8.5-10.1)
[2024-06-15 09:32] LABS: ALBUMIN 2.2 g/dl (3.4-5.0); MAGNESIUM 2.6 mg/dL (1.8-2.4)
[2024-06-15 09:35] LABS: CREATININE 1.3 mg/dL (0.55-1.3); PHOSPHOROUS 2.6 mg/dL (2.5-4.9)
[2024-06-15 09:36] LABS: BILIRUBIN,TOTAL 0.4 mg/dL (0.2-1); BLOOD UREA NITROGEN 44.2 mg/dL (7-18)
[2024-06-15 10:58] LABS: ANISOCYTOSIS 1+; MACROCYTOSIS 1+
[2024-06-15 11:29] LABS: HEMATOCRIT 34.4 % (35.4-49); MCH 28.3 pg (25.7-33.7); MEAN CELL VOLUME 88.7 fl (80-96); MEAN PLT VOLUME 9.2 fl (7.5-11.1); PLATELET COUNT 209 10^3/uL (134-434); RBC 3.88 M/mm3 (4.00-5.60); WHITE BLOOD COUNT 19.1 K/mm3 (4.0-10.0)
[2024-06-15 12:23] LABS: ANISOCYTOSIS 0; MACROCYTOSIS 0
[2024-06-15] MEDS: VANCOMYCIN/WATER FOR INJ (PEG) 1,000 MG/200 ML BAG IVPB ONE (12:47)
[2024-06-15] MEDS ORDERED: SODIUM CHLORIDE 0.45% 1,000 ML IV SCH (13:00)
[2024-06-15 16:03] LABS: WHITE BLOOD COUNT 31.1 K/mm3 (4.0-10.0)
[2024-06-15] MEDS: SODIUM CHLORIDE 0.45% 1,000 ML IV SCH (16:09)
[2024-06-15] MEDS: PIPERACILLIN/TAZOB 3.375 GM 50 ML IVPB SCH (18:09)
[2024-06-16 08:46] LABS: BASO % 0.2 % (0-2.0); EOS % 0.5 % (0-4.5); HEMATOCRIT 28.6 % (35.4-49); LYMPH % 7.1 % (8-40); MCH 27.8 pg (25.7-33.7); MCHC 31.4 g/dl (32.0-35.9); MEAN CELL VOLUME 88.6 fl (80-96); MEAN PLT VOLUME 9.4 fl (7.5-11.1); NEUT % 88.2 % (42.8-82.8); PLATELET COUNT 172 10^3/uL (134-434); RBC 3.23 M/mm3 (4.00-5.60); RDW 14.6 % (11.9-15.9)
[2024-06-16 09:03] LABS: POTASSIUM 3.8 mmol/L (3.5-5.1)
[2024-06-16 09:07] LABS: CALCIUM 8.2 mg/dL (8.5-10.1)
[2024-06-16 09:08] LABS: BLOOD UREA NITROGEN 35.9 mg/dL (7-18); MAGNESIUM 2.4 mg/dL (1.8-2.4)
[2024-06-16 09:10] LABS: CREATININE 0.8 mg/dL (0.55-1.3)
[2024-06-16 09:13] LABS: BILIRUBIN,TOTAL 0.4 mg/dL (0.2-1); TOT PROT 5.7 g/dl (6.4-8.2)
[2024-06-16 10:06] LABS: ANISOCYTOSIS 0; HELMET CELLS 0; HOWELL-JOLLY BODIES 0; MACROCYTOSIS 0; OVALOCYTE 0; ROULEAU 0; SICKELED CELLS 0; TARGET CELLS 0; TEAR DROP CELLS 0; TOXIC GRANULATION 0
[2024-06-16] MEDS: SODIUM CHLORIDE 0.45% 1,000 ML IV SCH (15:40)
[2024-06-16] MEDS ORDERED: PIPERACILLIN/TAZOB 2.25 GM 2.25 GM/50 ML BAG IVPB SCH (18:00)
[2024-06-16] MEDS: PIPERACILLIN/TAZOB 4.5 GM 4.5 GM/100 ML BAG IVPB SCH (21:25)
[2024-06-17 09:24] LABS: BASO % 0.3 % (0-2.0); EOS % 0.6 % (0-4.5); HEMATOCRIT 33.8 % (35.4-49); HEMOGLOBIN 11.2 GM/dL (11.7-16.9); LYMPH % 8.9 % (8-40); MCH 28.3 pg (25.7-33.7); MEAN CELL VOLUME 85.9 fl (80-96); MEAN PLT VOLUME 9.7 fl (7.5-11.1); MONO % 4.4 % (3.8-10.2); NEUT % 85.8 % (42.8-82.8); PLATELET COUNT 190 10^3/uL (134-434); RBC 3.94 M/mm3 (4.00-5.60); RDW 14.9 % (11.9-15.9); WHITE BLOOD COUNT 12.2 K/mm3 (4.0-10.0)
[2024-06-17 09:55] LABS: POTASSIUM 3.9 mmol/L (3.5-5.1)
[2024-06-17 10:03] LABS: ALBUMIN 2.2 g/dl (3.4-5.0); CALCIUM 8.7 mg/dL (8.5-10.1); MAGNESIUM 2.1 mg/dL (1.8-2.4)
[2024-06-17 10:05] LABS: BLOOD UREA NITROGEN 22.4 mg/dL (7-18)
[2024-06-17 10:06] LABS: CREATININE 0.7 mg/dL (0.55-1.3)
[2024-06-17 10:08] LABS: BILIRUBIN,TOTAL 0.5 mg/dL (0.2-1); TOT PROT 6.5 g/dl (6.4-8.2)
[2024-06-17] MEDS: CARBIDOPA/LEVODOPA 25/100 TABLET (FP) GT SCH (12:06)
[2024-06-17] MEDS: ACETAMINOPHEN 650 MG/20.3 ML ORAL SOLUTION (CUPS) GT PRN (14:14)
[2024-06-17] MEDS: LIDOCAINE 5% TOPICAL PATCH TP SCH (14:15)
[2024-06-17] MEDS: SODIUM CHLORIDE 0.45% 1,000 ML IV SCH (16:32)
[2024-06-17] MEDS: LIDOCAINE PATCH REMOVAL MC SCH (23:07)
[2024-06-18 08:39] LABS: HEMATOCRIT 35.4 % (35.4-49); HEMOGLOBIN 11.4 GM/dL (11.7-16.9); MCHC 32.3 g/dl (32.0-35.9); MEAN CELL VOLUME 86.6 fl (80-96); MEAN PLT VOLUME 9.9 fl (7.5-11.1); PLATELET COUNT 191 10^3/uL (134-434); RBC 4.08 M/mm3 (4.00-5.60); RDW 14.7 % (11.9-15.9); WHITE BLOOD COUNT 7.9 K/mm3 (4.0-10.0)
[2024-06-18 08:49] LABS: CALCIUM 8.7 mg/dL (8.5-10.1)
[2024-06-18 08:50] LABS: ALBUMIN 2.1 g/dl (3.4-5.0); BLOOD UREA NITROGEN 18.3 mg/dL (7-18); MAGNESIUM 1.9 mg/dL (1.8-2.4)
[2024-06-18 08:53] LABS: CREATININE 0.7 mg/dL (0.55-1.3)
[2024-06-18 08:54] LABS: BILIRUBIN,TOTAL 0.5 mg/dL (0.2-1); TOT PROT 6.1 g/dl (6.4-8.2)
[2024-06-18 09:39] LABS: ANISOCYTOSIS 0; MACROCYTOSIS 0
[2024-06-18] MEDS: CEFTRIAXONE 1 G/50 ML PREMIX 50 ML IVPB SCH (19:22)
[2024-06-19 09:27] LABS: BASO % 0.2 % (0-2.0); EOS % 0.6 % (0-4.5); HEMATOCRIT 32.6 % (35.4-49); HEMOGLOBIN 10.9 GM/dL (11.7-16.9); LYMPH % 20.4 % (8-40); MCH 28.5 pg (25.7-33.7); MCHC 33.4 g/dl (32.0-35.9); MEAN CELL VOLUME 85.2 fl (80-96); MEAN PLT VOLUME 9.2 fl (7.5-11.1); MONO % 10.6 % (3.8-10.2); NEUT % 68.2 % (42.8-82.8); PLATELET COUNT 255 10^3/uL (134-434); RBC 3.83 M/mm3 (4.00-5.60); RDW 14.5 % (11.9-15.9); WHITE BLOOD COUNT 9.4 K/mm3 (4.0-10.0)
[2024-06-19 09:53] LABS: POTASSIUM 4.4 mmol/L (3.5-5.1)
[2024-06-19 10:39] LABS: ALBUMIN 2.2 g/dl (3.4-5.0); BLOOD UREA NITROGEN 17.7 mg/dL (7-18); CALCIUM 8.9 mg/dL (8.5-10.1)
[2024-06-19 10:40] LABS: MAGNESIUM 1.9 mg/dL (1.8-2.4)
[2024-06-19 10:42] LABS: CREATININE 0.7 mg/dL (0.55-1.3)
[2024-06-19 10:43] LABS: BILIRUBIN,TOTAL 0.4 mg/dL (0.2-1)
[2024-06-19 10:44] LABS: TOT PROT 6.5 g/dl (6.4-8.2)
[2024-06-20 09:41] LABS: BASO % 0.4 % (0-2.0); EOS % 0.3 % (0-4.5); HEMATOCRIT 31.7 % (35.4-49); HEMOGLOBIN 10.6 GM/dL (11.7-16.9); LYMPH % 13.2 % (8-40); MCH 28.5 pg (25.7-33.7); MCHC 33.5 g/dl (32.0-35.9); MEAN PLT VOLUME 8.9 fl (7.5-11.1); MONO % 12.9 % (3.8-10.2); NEUT % 73.2 % (42.8-82.8); PLATELET COUNT 293 10^3/uL (134-434); RBC 3.73 M/mm3 (4.00-5.60); RDW 14.7 % (11.9-15.9); WHITE BLOOD COUNT 9.6 K/mm3 (4.0-10.0)
[2024-06-20 09:53] LABS: POTASSIUM 4.1 mmol/L (3.5-5.1)
[2024-06-20 10:06] LABS: ALBUMIN 2.3 g/dl (3.4-5.0)
[2024-06-20 10:07] LABS: BLOOD UREA NITROGEN 20.1 mg/dL (7-18)
[2024-06-20 10:09] LABS: CALCIUM 8.7 mg/dL (8.5-10.1); CREATININE 0.6 mg/dL (0.55-1.3); MAGNESIUM 1.9 mg/dL (1.8-2.4)
[2024-06-20 10:11] LABS: BILIRUBIN,TOTAL 0.3 mg/dL (0.2-1); TOT PROT 6.5 g/dl (6.4-8.2)
[2024-06-20] MEDS: POVIDONE-IODINE 10% SOLN 118 ML BOTTLE TP SCH (16:00)
[2024-06-21] MEDS: BACITRACIN ZINC 15 GM TUBE TOPICAL OINTMENT TP SCH (17:30)
[2024-06-21 19:16] LABS: BASO % 0.3 % (0-2.0); EOS % 0.3 % (0-4.5); HEMATOCRIT 31.8 % (35.4-49); HEMOGLOBIN 10.2 GM/dL (11.7-16.9); LYMPH % 19.3 % (8-40); MCH 27.8 pg (25.7-33.7); MCHC 32.2 g/dl (32.0-35.9); MEAN CELL VOLUME 86.2 fl (80-96); MEAN PLT VOLUME 8.5 fl (7.5-11.1); MONO % 13.2 % (3.8-10.2); NEUT % 66.9 % (42.8-82.8); PLATELET COUNT 356 10^3/uL (134-434); RBC 3.68 M/mm3 (4.00-5.60); RDW 14.8 % (11.9-15.9); WHITE BLOOD COUNT 9.1 K/mm3 (4.0-10.0)
[2024-06-21 19:37] LABS: POTASSIUM 4.9 mmol/L (3.5-5.1)
[2024-06-21 19:40] LABS: ALBUMIN 2.2 g/dl (3.4-5.0)
[2024-06-21 19:41] LABS: BLOOD UREA NITROGEN 22.5 mg/dL (7-18); MAGNESIUM 1.9 mg/dL (1.8-2.4)
[2024-06-21 19:45] LABS: CREATININE 0.7 mg/dL (0.55-1.3); PHOSPHOROUS 3.1 mg/dL (2.5-4.9)
[2024-06-21 19:46] LABS: BILIRUBIN,TOTAL 0.5 mg/dL (0.2-1); TOT PROT 6.7 g/dl (6.4-8.2)
[2024-06-21] MEDS: SODIUM CHLORIDE 1,000 ML IV STA (20:59)
[2024-06-22] MEDS: ACETAMINOPHEN 1000 MG/100 ML BAG IVPB ONE (06:14)
[2024-06-22 09:46] LABS: BASO % 0.3 % (0-2.0); EOS % 0.4 % (0-4.5); HEMATOCRIT 31.6 % (35.4-49); HEMOGLOBIN 9.9 GM/dL (11.7-16.9); LYMPH % 13.9 % (8-40); MCH 27.5 pg (25.7-33.7); MCHC 31.3 g/dl (32.0-35.9); MEAN CELL VOLUME 87.8 fl (80-96); MEAN PLT VOLUME 9.2 fl (7.5-11.1); MONO % 8.6 % (3.8-10.2); NEUT % 76.8 % (42.8-82.8); PLATELET COUNT 402 10^3/uL (134-434); RBC 3.59 M/mm3 (4.00-5.60); WHITE BLOOD COUNT 10.7 K/mm3 (4.0-10.0)
[2024-06-22 10:09] LABS: POTASSIUM 5.4 mmol/L (3.5-5.1)
[2024-06-22 10:16] LABS: BLOOD UREA NITROGEN 23.1 mg/dL (7-18)
[2024-06-22 10:17] LABS: ALBUMIN 2.3 g/dl (3.4-5.0)
[2024-06-22 10:18] LABS: CALCIUM 9.1 mg/dL (8.5-10.1)
[2024-06-22 10:19] LABS: CREATININE 0.7 mg/dL (0.55-1.3)
[2024-06-22 10:21] LABS: BILIRUBIN,TOTAL 0.4 mg/dL (0.2-1)
[2024-06-22 10:23] LABS: TOT PROT 6.9 g/dl (6.4-8.2)
[2024-06-22] MEDS ORDERED: SODIUM ZIRCONIUM CYCLOSILICATE (LOKELMA) 5 GM PACKET GT ONE ×2 (13:00→14:30)
[2024-06-22] MEDS: SODIUM ZIRCONIUM CYCLOSILICATE (LOKELMA) 10 GM PACKET GT ONE (16:28)
[2024-06-23 11:45] LABS: BASO % 0.3 % (0-2.0); EOS % 0.3 % (0-4.5); HEMATOCRIT 26.9 % (35.4-49); HEMOGLOBIN 8.7 GM/dL (11.7-16.9); LYMPH % 18.9 % (8-40); MCH 27.8 pg (25.7-33.7); MCHC 32.4 g/dl (32.0-35.9); MEAN PLT VOLUME 7.9 fl (7.5-11.1); NEUT % 72.5 % (42.8-82.8); PLATELET COUNT 402 10^3/uL (134-434); RBC 3.13 M/mm3 (4.00-5.60); RDW 14.8 % (11.9-15.9); WHITE BLOOD COUNT 8.7 K/mm3 (4.0-10.0)
[2024-06-23 11:56] LABS: POTASSIUM 3.9 mmol/L (3.5-5.1)
[2024-06-23 12:01] LABS: CALCIUM 8.8 mg/dL (8.5-10.1)
[2024-06-23 12:02] LABS: BLOOD UREA NITROGEN 18.8 mg/dL (7-18); MAGNESIUM 1.8 mg/dL (1.8-2.4)
[2024-06-23 12:05] LABS: CREATININE 0.7 mg/dL (0.55-1.3)
[2024-06-23 12:06] LABS: BILIRUBIN,TOTAL 0.5 mg/dL (0.2-1)
[2024-06-23 12:07] LABS: TOT PROT 6.3 g/dl (6.4-8.2)
[2024-06-23] MEDS: MAGNESIUM OXIDE 400 MG TABLET (FP) GT ONE (14:09)
[2024-06-24 09:44] LABS: BASO % 0.3 % (0-2.0); EOS % 0.2 % (0-4.5); HEMATOCRIT 29.2 % (35.4-49); HEMOGLOBIN 9.5 GM/dL (11.7-16.9); LYMPH % 16.6 % (8-40); MCH 27.7 pg (25.7-33.7); MCHC 32.5 g/dl (32.0-35.9); MEAN CELL VOLUME 85.3 fl (80-96); MEAN PLT VOLUME 8.3 fl (7.5-11.1); MONO % 7.4 % (3.8-10.2); NEUT % 75.5 % (42.8-82.8); PLATELET COUNT 470 10^3/uL (134-434); RBC 3.42 M/mm3 (4.00-5.60); RDW 15.2 % (11.9-15.9); WHITE BLOOD COUNT 8.2 K/mm3 (4.0-10.0)
[2024-06-24 10:03] LABS: POTASSIUM 4.6 mmol/L (3.5-5.1)
[2024-06-24 10:14] LABS: BLOOD UREA NITROGEN 18.2 mg/dL (7-18)
[2024-06-24 10:17] LABS: CREATININE 0.6 mg/dL (0.55-1.3)
[2024-06-24 10:18] LABS: MAGNESIUM 2.1 mg/dL (1.8-2.4)
[2024-06-24 10:20] LABS: BILIRUBIN,TOTAL 0.6 mg/dL (0.2-1)
[2024-06-24 12:38] LABS: ALBUMIN 2.2 g/dl (3.4-5.0); TOT PROT 6.6 g/dl (6.4-8.2)
[2024-06-24] MEDS: MINERAL OIL/PET HY-PHL TOPICAL OINTMENT 454 GM JAR TP SCH (13:15)
[2024-06-25 06:58] VITALS: RESP 20
[2024-06-25 09:35] VITALS: BP 140/64; PULSE 84; TEMP 98.5
[2024-06-25 09:41] LABS: BASO % 0.4 % (0-2.0); EOS % 0.1 % (0-4.5); HEMATOCRIT 29.8 % (35.4-49); HEMOGLOBIN 9.6 GM/dL (11.7-16.9); LYMPH % 14.2 % (8-40); MCH 27.6 pg (25.7-33.7); MCHC 32.1 g/dl (32.0-35.9); MEAN CELL VOLUME 86.1 fl (80-96); MEAN PLT VOLUME 8.1 fl (7.5-11.1); MONO % 7.1 % (3.8-10.2); NEUT % 78.2 % (42.8-82.8); PLATELET COUNT 544 10^3/uL (134-434); RBC 3.46 M/mm3 (4.00-5.60); RDW 15.3 % (11.9-15.9)
[2024-06-25 10:02] LABS: POTASSIUM 4.6 mmol/L (3.5-5.1)
[2024-06-25 10:11] LABS: CALCIUM 9.1 mg/dL (8.5-10.1)
[2024-06-25 10:12] LABS: ALBUMIN 2.2 g/dl (3.4-5.0); BLOOD UREA NITROGEN 18.7 mg/dL (7-18); MAGNESIUM 2.2 mg/dL (1.8-2.4)
[2024-06-25 10:14] LABS: CREATININE 0.7 mg/dL (0.55-1.3)
[2024-06-25 10:16] LABS: BILIRUBIN,TOTAL 0.5 mg/dL (0.2-1)
== END 2024-06-25 13:10 | DRG 871 ==
LOC: JER 15:36 → JERBED 21:48 → J8W 06-14 01:59 → OBSVTOIN 06-14 10:10
PROVIDERS: ADMIT Internal Medicine; ATTEND Nurse Practitioner Acute Care
DX: A41.89 Other specified sepsis (principal); E43 Unspecified severe protein-calorie malnutrition; R53.2 Functional quadriplegia; G93.41 Metabolic encephalopathy; R64 Cachexia; Z68.1 Body mass index [BMI] 19.9 or less, adult; N17.9 Acute kidney failure, unspecified; N39.0 Urinary tract infection, site not specified; K81.0 Acute cholecystitis; R56.9 Unspecified convulsions; D72.829 Elevated white blood cell count, unspecified; F02.80 Dementia in other diseases classified elsewhere, unspecified severity, without behavioral disturbance, psychotic disturbance, mood disturbance, and anxiety; G20.A1 Parkinson's disease without dyskinesia, without mention of fluctuations; N40.0 Benign prostatic hyperplasia without lower urinary tract symptoms; I10 Essential (primary) hypertension; R62.7 Adult failure to thrive; L89.150 Pressure ulcer of sacral region, unstageable; Z86.73 Personal history of transient ischemic attack (TIA), and cerebral infarction without residual deficits
CPT/HCPCS: 0241U-QW; 36415; 71045-TC-FY; 74176-TC; 76705-TC; 76775-TC; 80053; 81003; 82436; 82570; 83605; 83735; 84100; 84133; 84300; 84484; 85025; 86140; 87040; 87077; 87086; 87186; 87635; 93005; 93010; 97161-GP; 99285-25; G0378; J0131; J1644